=== PATIENT | female | born 1995 | race Caucasian/White ===

== ENCOUNTER 2017-04-18 22:13 | Emergency (ER) | payer BC ==
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
[2017-04-18 23:51] VITALS: BP 137/92
== END 2017-04-18 22:55 | disposition home or self-care (01) ==
LOC: LB.ED 22:13
DX: M54.5 Low back pain (principal); Z88.8 Allergy status to other drugs, medicaments and biological substances
CPT/HCPCS: 99283

== ENCOUNTER 2017-07-26 16:02 | Emergency (ER) | payer MEDICAID | END 2017-07-26 16:40 | disposition left against medical advice (07) | LOC: LB.ED 16:02 | DX: Z53.21 Procedure and treatment not carried out due to patient leaving prior to being seen by health care provider (principal) ==

== ENCOUNTER 2017-09-14 16:33 | Emergency (ER) | payer BC, MEDICAID ==
--- NOTE | 2017-09-14 17:13 | EDM.PDOC ---
ED HPI GENERAL MEDICAL PROBLEM - General Chief Complaint: General Stated Complaint: Chest congestion, upper respiratory infection Time Seen by Provider: 09/14/17 16:45 Source of Information: Reports: Patient History Limitations: Reports: No Limitations - History of Present Illness INITIAL COMMENTS - FREE TEXT/NARRATIVE: According to patient she claims she has nasal congestion with cough and fever which started last friday, pt did see Dr. Zamora on friday and she was started on Augmentin for cough . The cough did not get better and she has nasal drainage and post nasal drip. Hence she did come back and see Bryan Felix CNP, who started her on tessolon pearls. Pt is here as she ahs been on antibiotics and tessolon pearls and still has cough and nasal congestion. She claims that her cough is present all day and night. no wheezing but claims she is short of breath, when asked to describe what she means by shortness of breath, she says" i get sharp ain sometimes when i breath and it quickly goes away, hurts to cough in the chest". Pt mg smokes cigarettes daily. Duration: Week(s): (1) Severity: Mild Associated Symptoms: Reports: Cough, Fever/Chills. Denies: Confusion, Nausea/ Vomiting, Rash, Shortness of Breath, Weakness - Related Data Allergies Allergy/AdvReac Type Severity Reaction Status Date / Time fluoxetine [From Prozac] Allergy Rash Verified 09/14/17 17:00 Home Meds: Home Meds Amoxicillin/Clavulanate K [Augmentin 500-125 MG] 1 tab PO DAILY 09/14/17 [ History] Benzonatate [Tessalon Perles] 1 tab PO Q6HR 09/14/17 [History] Past Medical History HEENT History: Reports: None Cardiovascular History: Reports: None Respiratory History: Reports: None Gastrointestinal History: Reports: None Genitourinary History: Reports: None Other OB/BYN History: no pregnancies Musculoskeletal History: Reports: None, Other (See Below) Other Musculoskeletal History: osteopenia Neurological History: Reports: None Endocrine/Metabolic History: Reports: None Oncologic (Cancer) History: Reports: None - Infectious Disease History Infectious Disease History: Reports: Chicken Pox, Influenza - Past Surgical History Other Musculoskeletal Surgeries/Procedures:: back pain solely with muscle injury Social & Family History - Family History Family Medical History: Noncontributory - Tobacco Use Smoking Status *Q: Current Every Day Smoker Years of Tobacco use: 3 Packs/Tins Daily: 1 Used Tobacco, but Quit: No Second Hand Smoke Exposure: Yes - Caffeine Use Caffeine Use: Reports: Coffee, Energy Drinks, Soda - Recreational Drug Use Recreational Drug Use: No ED ROS GENERAL - Review of Systems Review Of Systems: See Below Constitutional: Reports: Fever. Denies: Chills, Night Sweats, Diaphoresis HEENT: Reports: Rhinitis, Sinus Problem, Throat Pain. Denies: Ear Pain, Nose Pain, Throat Swelling Respiratory: Reports: Pleuritic Chest Pain, Cough, Sputum. Denies: Shortness of Breath, Wheezing Cardiovascular: Denies: Lightheadedness GI/Abdominal: Denies: Abdominal Pain, Nausea, Vomiting Skin: Denies: Bruising, Pruritis, Rash Neurological: Denies: Confusion, Dizziness ED EXAM, GENERAL - Physical Exam Exam: See Below Exam Limited By: No Limitations General Appearance: Alert, WD/WN, No Apparent Distress Eye Exam: Bilateral Eye: EOMI, PERRL Ears: Normal External Exam, Normal Canal, Hearing Grossly Normal, Normal TMs Ear Exam: Bilateral Ear: Auricle Normal, Canal Normal, TM normal Nose: Normal Inspection, Normal Mucosa, Nasal Drainage (clear mucoid) Throat/Mouth: Normal Inspection, Normal Lips, Normal Teeth, Normal Gums, Normal Oropharynx, Normal Voice, No Airway Compromise, Other (post nasal drip seen) Head: Atraumatic, Normocephalic. No: Facial Tenderness, Sinus Tenderness Neck: Normal Inspection, Supple, Non-Tender Respiratory/Chest: No Respiratory Distress, Lungs Clear, Normal Breath Sounds, No Accessory Muscle Use, Chest Non-Tender Cardiovascular: Normal Peripheral Pulses, Regular Rate, Rhythm, No Edema, No Gallop, No JVD, No Murmur, No Rub Course - Vital Signs Text/Narrative:: Pt's cbc shows normal white count. HEr clincal exam and lung auscultation are normal. She does have nasal congestion with post nasal drip. Pt reassured that she has viral sinus infection. Antibiotics really will not help much with it. I have advised patient to continue tessolon pearls to help with cough and drainage. steam inhalations 2-3 times daily. [place] try OTC robutussin DM 3-4 times daily. Rest and hydration. the symptoms should gradually improve over the next few days. I have advised patient to quit smoking. Last Recorded V/S: Last Vital Signs Temp 97.6 F 09/14/17 17:07 Pulse Resp 16 09/14/17 17:07 BP Pulse Ox 98 09/14/17 17:07 - Orders/Labs/Meds Orders: Active Orders 24 hr Category Date Time Status CBC WITH AUTO DIFF [HEME] Stat Lab 09/14/17 17:08 Ordered Departure - Departure Time of Disposition: 17:30 Disposition: Home, Self-Care 01 Condition: Fair Clinical Impression: Viral URI with cough - Discharge Information Additional Instructions: Pt's cbc shows normal white count. Her clinical exam and lung auscultation are normal. She does have nasal congestion with post nasal drip. Pt reassured that she has viral sinus infection. Antibiotics really will not help much with it. I have advised patient to continue tessolon pearls to help with cough and drainage. steam inhalations 2-3 times daily. [place] try OTC robutussin DM 3-4 times daily. Rest and hydration. the symptoms should gradually improve over the next few days. I have advised patient to quit smoking. - Problem List & Annotations (1) Viral URI with cough SNOMED Code(s): 09926012 Code(s): J06.9 - ACUTE UPPER RESPIRATORY INFECTION, UNSPECIFIED; B97.89 - OTH VIRAL AGENTS THE CAUSE OF DISEASES CLASSD [id number] Status: Acute Current Visit: Yes - Problem List Review Problem List Initiated/Reviewed/Updated: Yes - My Orders Last 24 Hours: My Active Orders 09/14/17 17:08 CBC WITH AUTO DIFF [HEME] Stat - Assessment/Plan Last 24 Hours: My Active Orders 09/14/17 17:08 CBC WITH AUTO DIFF [HEME] Stat Assessment:: Viral URI with cough Plan: Pt's cbc shows normal white count. HEr clincal exam and lung auscultation are normal. She does have nasal congestion with post nasal drip. Pt reassured that she has viral sinus infection. Antibiotics really will not help much with it. I have advised patient to continue tessolon pearls to help with cough and drainage. steam inhalations 2-3 times daily. [place] try OTC robutussin DM 3-4 times daily. Rest and hydration. the symptoms should gradually improve over the next few days. I have advised patient to quit smoking.
== END 2017-09-14 17:20 | disposition home or self-care (01) ==
LOC: LB.ED 16:33
DX: J06.9 Acute upper respiratory infection, unspecified (principal); F17.210 Nicotine dependence, cigarettes, uncomplicated
CPT/HCPCS: 36415; 85025; 99283

== ENCOUNTER 2017-11-28 05:00 | Emergency (ER) | payer MEDICAID, OTHER ==
[2017-11-28 05:38] VITALS: BP 124/75
[2017-11-28] MEDS ORDERED: Ketorolac 60 MG/2 ML SDV IM ONE (05:40)
[2017-11-28] MEDS ORDERED: Cyclobenzaprine 10 MG Tab PO ONE (05:41)
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
== END 2017-11-28 07:10 | disposition home or self-care (01) ==
LOC: LB.ED 05:00
DX: S16.1XXA Strain of muscle, fascia and tendon at neck level, initial encounter (principal); V49.40XA Driver injured in collision with unspecified motor vehicles in traffic accident, initial encounter; Y92.410 Unspecified street and highway as the place of occurrence of the external cause; Z88.8 Allergy status to other drugs, medicaments and biological substances
CPT/HCPCS: 72125; 96372; 99283; A9270; J1885

== ENCOUNTER 2018-05-07 22:44 | Emergency (ER) | payer MEDICAID ==
[2018-05-07 23:09] VITALS: BP 127/85
--- NOTE | 2018-05-07 23:44 | EDM.PDOC ---
ED HPI GENERAL MEDICAL PROBLEM - General Chief Complaint: General Stated Complaint: NAUSEA/VOMITING Time Seen by Provider: 05/07/18 23:03 Source of Information: Reports: Patient, RN History Limitations: Reports: No Limitations - History of Present Illness INITIAL COMMENTS - FREE TEXT/NARRATIVE: 22 yr female presents with nausea and vomiting at home after her work. States no menses for about 6 months and has lower left pelvic pain. States she had a depo shot about 6 months ago and no menses since then. States she did eat a sandwich today and has been taking fluids ok, didn't have any supper. States she takes Advil occasional for headache, but no excessive use. Onset: Today Onset Date: 05/07/18 Onset Time: 22:00 Associated Symptoms: Reports: Nausea/Vomiting Abdominal Pain Score (Numeric/FACES): 3 - Related Data Allergies Allergy/AdvReac Type Severity Reaction Status Date / Time fluoxetine [From Prozac] Allergy Rash Verified 05/07/18 23:03 Home Meds: Home Meds NK [No Known Home Meds] 11/28/17 [History] Past Medical History - Past Health History Medical/Surgical History: Denies Medical/Surgical History HEENT History: Reports: None Cardiovascular History: Reports: None Respiratory History: Reports: None Gastrointestinal History: Reports: None Genitourinary History: Reports: None Other OB/BYN History: no pregnancies Musculoskeletal History: Reports: None, Other (See Below) Other Musculoskeletal History: osteopenia Neurological History: Reports: None Psychiatric History: Reports: Anxiety Endocrine/Metabolic History: Reports: None Oncologic (Cancer) History: Reports: None - Infectious Disease History Infectious Disease History: Reports: Chicken Pox, Influenza - Past Surgical History Other Musculoskeletal Surgeries/Procedures:: back pain solely with muscle injury Social & Family History - Family History Family Medical History: Noncontributory - Tobacco Use Smoking Status *Q: Current Every Day Smoker Years of Tobacco use: 3 Packs/Tins Daily: 0.5 Used Tobacco, but Quit: No Second Hand Smoke Exposure: No - Caffeine Use Caffeine Use: Reports: None - Recreational Drug Use Recreational Drug Use: No ED ROS GENERAL - Review of Systems Review Of Systems: See Below Constitutional: Reports: No Symptoms HEENT: Reports: No Symptoms Respiratory: Reports: No Symptoms Cardiovascular: Reports: No Symptoms GI/Abdominal: Reports: Nausea, Vomiting, Other (abdominal cramp). Denies: Diarrhea : Reports: Irregular Menses, Other (amenorrhea). Denies: Dysuria, Flank Pain , Hematuria Musculoskeletal: Reports: No Symptoms Skin: Reports: No Symptoms Neurological: Reports: No Symptoms Psychiatric: Reports: No Symptoms Hematologic/Lymphatic: Reports: No Symptoms ED EXAM, GENERAL - Physical Exam Exam: See Below Exam Limited By: No Limitations General Appearance: Alert, No Apparent Distress Ears: Hearing Grossly Normal Nose: Normal Inspection Throat/Mouth: Normal Voice, No Airway Compromise Head: Atraumatic, Normocephalic Neck: Normal Inspection, Supple Respiratory/Chest: No Respiratory Distress, Lungs Clear, Normal Breath Sounds Cardiovascular: Regular Rate, Rhythm GI/Abdominal: Normal Bowel Sounds, Soft, No Distention, Tender (left lower abdominal/pelvic tenderness). No: Guarding, Rigid, Rebound (Female) Exam: Deferred Rectal (Female) Exam: Deferred Back Exam: Normal Inspection Extremities: Normal Inspection, Normal Range of Motion, No Pedal Edema Neurological: Alert, Oriented, Normal Cognition Psychiatric: Normal Affect, Normal Mood Skin Exam: Warm, Dry, Normal Color Lymphatic: No Adenopathy Course - Vital Signs Last Recorded V/S: Last Vital Signs Temp 97.6 F 05/07/18 23:10 Pulse 101 H 05/07/18 23:10 Resp 16 05/07/18 23:10 BP 127/85 05/07/18 23:10 Pulse Ox 100 05/07/18 23:10 - Orders/Labs/Meds Labs: Laboratory Tests 05/07/18 05/07/18 Range/Units 23:15 23:15 Urine Color Yellow Urine Appearance Clear (CLEAR) Urine pH 5.5 (5.0-8.0) Ur Specific [place] <= 1.005 (1.003-1.030) Urine Protein Negative (NEGATIVE) mg/dL Urine Glucose (UA) Negative (NEGATIVE) mg/dL Urine Ketones Negative (NEGATIVE) mg/dL Urine Occult Blood Negative (NEGATIVE) Urine Nitrite Negative (NEGATIVE) Urine Bilirubin Negative (NEGATIVE) Urine Urobilinogen 0.2 (0.2-1.0) E.U./dL Ur Leukocyte Esterase Negative (NEGATIVE) Urine HCG, Qual Negative (NEGATIVE) - Re-Assessments/Exams Free Text/Narrative Re-Assessment/Exam: 05/08/18 08:20 LE 05-07-18 23:25 Discussed lab results with pt. No UTI and Hcg is negative. Minimal tenderness to left lower quad of abdomen. Recommend F/U in clinic if symptoms persist. Recommend F/U with [facility] [facility] for no menses for 6 months. Recommend soft bland diet, clear liquids tonight and adequate fluids as tolerated. Pt agrees to treatment plan and discharge ambulatory in no acute distress. Departure - Departure Time of Disposition: 23:28 Disposition: Home, Self-Care 01 Condition: Good Clinical Impression: Nausea & vomiting - Discharge Information Instructions: [place] Diet Forms: ED Department Discharge Additional Instructions: Clear liquids tonight as tolerated. Get plenty of rest. May advance diet to soft foods as tolerated. Follow up in clinic as needed. Call with any questions.
== END 2018-05-07 23:28 | disposition home or self-care (01) ==
LOC: LB.ED 22:44
DX: R11.2 Nausea with vomiting, unspecified (principal); Z88.8 Allergy status to other drugs, medicaments and biological substances; F17.210 Nicotine dependence, cigarettes, uncomplicated
CPT/HCPCS: 81003; 81025; 99283

== ENCOUNTER 2020-06-10 07:07 | Emergency (ER) | payer SELFPAY | END 2020-06-10 07:45 | disposition home or self-care (01) | LOC: LB.ED 07:07 | DX: Z53.21 Procedure and treatment not carried out due to patient leaving prior to being seen by health care provider (principal) | CPT/HCPCS: 99281 ==